=== PATIENT | female | born 1990 | race African-American/Black ===

== ENCOUNTER 2020-03-31 00:28 | Emergency (ER) | payer OTHER ==
[~2020-03-31] VITALS: Ht 167.6 cm; Wt 59.0 kg
[~2020-03-31 00:28] MED LIST: CIPROFLOXACIN500 M1 PO; COMPAZINE10 MG PO; FLEXERIL PO; IBUPROFEN 600600 M1 PO; NOHOMEMEDICATIONS; NORCO 5-325 TA1 EACH PO; PHENERGAN 25 MG25 M1 PO
[2020-03-31] MEDS ORDERED: NORCO 5-325 TA1 EAC2 PO (00:58)
[2020-03-31] MEDS ORDERED: PENICILLIN V P500 MG PO (00:58)
[2020-03-31 01:18] VITALS: BP 131/92
== END 2020-03-31 01:21 | disposition home or self-care (01) ==
LOC: ER 00:28
DX: K04.7 Periapical abscess without sinus (principal); F17.210 Nicotine dependence, cigarettes, uncomplicated

== ENCOUNTER 2021-03-25 06:13 | Emergency (ER) | payer OTHER ==
[~2021-03-25] VITALS: Ht 157.5 cm; Wt 72.6 kg
[~2021-03-25 06:13] MED LIST changes: +NORCO 5-325 TA1 EAC2 PO; +PENICILLIN V P500 MG PO
[2021-03-25 06:20] VITALS: BP 114/49
[2021-03-25] MEDS ORDERED: PERIDEX15 ML PO (06:38)
[2021-03-25] MEDS ORDERED: NAPROSYN500 MG PO (06:38)
== END 2021-03-25 07:32 | disposition home or self-care (01) ==
LOC: ER 06:13
DX: K08.89 Other specified disorders of teeth and supporting structures (principal); F17.210 Nicotine dependence, cigarettes, uncomplicated